=== PATIENT | male | born 1985 | race Caucasian/White ===

== ENCOUNTER 2023-07-27 15:22 | Emergency (ER) | payer MEDICAID ==
[~2023-07-27] VITALS: Ht 177.8 cm; Wt 68.9 kg
[2023-07-27 15:50] VITALS: BP_SYST 125; PULSE 79; RESP 20; TEMP 98.1; O2SAT 99
[2023-07-27] MEDS ORDERED: LIDOCAINE 1%, 20 ML MDV 20 ML ONE (16:41)
[2023-07-27] MEDS ORDERED: DOXY100C5 PO (16:47)
[2023-07-27 17:28] VITALS: BP_SYST 125; PULSE 79; RESP 20; TEMP 98.1; O2SAT 99
[2023-07-27] MEDS ORDERED: DIPHTH,PERTUSS(ACELL),TET VAC 0.5 ML VIAL (Tdap) I.M. ONE (19:30)
== END 2023-07-27 17:22 | disposition home or self-care (01) ==
LOC: SED 15:22
DX: S61.411A Laceration without foreign body of right hand, initial encounter (principal); W45.8XXA Other foreign body or object entering through skin, initial encounter; Y93.89 Activity, other specified; Y92.89 Other specified places as the place of occurrence of the external cause; Y99.8 Other external cause status
CPT/HCPCS: 99283; 73130; 12002; J2001